=== PATIENT | male | born 1990 | race Caucasian/White ===

== ENCOUNTER 2019-04-12 10:14 | Emergency (ER) | payer BC ==
--- NOTE | 2019-04-12 10:41 | EDPHY ---
H & P Stated Complaint: crohn's disease flair, anxiety, "lost 10 lbs over 4 days" Time Seen by Provider: 04/12/19 10:29 HPI/ROS: CHIEF COMPLAINT: Anxiety, history of Crohn's disease HISTORY OF PRESENT ILLNESS: 28-year-old male history of Crohn's disease diagnosed at age 17, drove to the ER for multiple complaints. He has been working a new restaurant job requiring abnormal hours which has caused GI distress over the past few months. He also notes that because of his change in sleep habits this discussed dietary changes as well as increasing anxiety. This morning he was experiencing acute anxiety. He moved from the [facility] area 2 months ago and has not established local primary care and/or gastroenterology. No history of biologics. No testicle pain. No urinary abnormality. No headache. No fever no chills. PRIMARY CARE PROVIDER: REVIEW OF SYSTEMS: 10 systems reviewed and negative with the exception of the elements mentioned in the history of present illness PAST MEDICAL & SURGICAL HISTORY: Crohn's disease SOCIAL HISTORY: Nonsmoker. . Minimal alcohol use. Works as a contracting manager. PHYSICAL EXAM (Prior to examination, patient consented to physical exam, hands were washed and my usual and customary physical exam procedures followed) 1) GENERAL: Well-developed, well-nourished, alert and oriented. Tearful. Appears anxious 2) HEAD: Normocephalic, atraumatic 3) HEENT: Pupils equal, round, reactive to light bilaterally. Sclera anicteric. Nasopharynx, oropharynx, clear, no lesions. Dry mucous membranes. 4) NECK: Full range of motion, no meningeal signs. 5) LUNGS: Clear auscultation bilaterally, no wheezes, no rhonchi, no retractions. 6) HEART: Regular rate and rhythm, no murmur, no heave, no gallop. 7) ABDOMEN: No guarding, no rebound, no focal tenderness, negative McBurney's, negative Nix's, negative Rovsing's, negative peritoneal sign, I am unable to elicit any abdominal pain on exam 8) MUSCULOSKELETAL: Moving all extremities, no focal areas of tenderness, no obvious trauma. No peripheral edema or discoloration. 9) BACK: No CVA tenderness, no midline vertebral tenderness, no fluctuance, no step-off, no obvious trauma, no visual or palpable abnormality. 10) SKIN: No rash, no petechiae. 11) Psychiatric: Patient is oriented X 3, there is no agitation. DIFFERENTIAL DIAGNOSIS: My differential diagnosis includes, but is not limited to, acute appendicitis, acute cholecystitis, acute Crohn's exacerbation, bowel obstruction, acute pancreatitis,, gastritis and urinary tract infection. The patient understands that this diagnosis is provisional and can never be 100% accurate. This is a partial list of diagnoses considered. These considerations are based on history, physical exam, past history and reassessment. - Personal History Current Tetanus/Diphtheria Vaccine: Yes Current Tetanus Diphtheria and Acellular Pertussis (TDAP): Yes - Medical/Surgical History Hx Asthma: No Hx Chronic Respiratory Disease: No Hx Diabetes: No Hx Cardiac Disease: No Hx Renal Disease: No Hx Cirrhosis: No Hx Alcoholism: No Hx HIV/AIDS: No Hx Splenectomy or Spleen Trauma: No Other PMH: crohn's disease, anxiety - Social History Smoking Status: Never smoked Constitutional: Initial Vital Signs Temperature (C) 36.7 C 04/12/19 10:17 Heart Rate 90 04/12/19 10:17 Respiratory Rate 16 04/12/19 10:17 Blood Pressure 157/96 H 04/12/19 10:17 O2 Sat (%) 97 04/12/19 10:17 O2 Delivery Mode Room Air Allergies/Adverse Reactions: amoxicillin [From Augmentin] Allergy (Verified 04/12/19 10:17) ciprofloxacin [From Cipro] Allergy (Verified 04/12/19 10:17) clavulanic acid [From Augmentin] Allergy (Verified 04/12/19 10:17) Sulfa (Sulfonamide Antibiotics) Allergy (Verified 04/12/19 10:17) Home Medications: Medication Instructions Recorded LORazepam [Ativan 1 mg (RX)] 1 mg PO Q6 PRN #7 tab 04/12/19 Medical Decision Making ED Course/Re-evaluation: Re-evaluation with serial exams most recently at 11:40 a.m.. Patient resting comfortably. Given IV Ativan appears more comfortable, no longer appears anxious. Reviewed his laboratory results with him. No evidence of pre renal azotemia. Doubt acute surgical abdominal pathology in absence of abdominal pain. This time I do not think that imaging studies are indicated. Do not think that emergent GI consultation is indicated. I think the patient can be safely discharged at this time. Recommend establishing primary care, status showing primary gastroenterology. Have given him a small prescription for Ativan as needed for acute anxiety/panic attacks. Patient feels comfortable being discharged. All questions and concerns addressed by myself. Patient given my usual and customary discharge precautions and instructions regarding their clinical impression. Care of patient under supervision of primary Supervising physician Dr Saravia. - Data Points Laboratory Results: Laboratory Results 04/12/19 10:45 04/12/19 10:45 04/12/19 04/12/19 10:45 10:45 WBC 11.60 10^3/uL H 10^3/uL (3.80-9.50) RBC 5.55 10^6/uL 10^6/uL (4.40-6.38) Hgb 16.3 g/dL g/dL (13.7-17.5) Hct 46.0 % % (40.0-51.0) MCV 82.9 fL fL (81.5-99.8) MCH 29.4 pg pg (27.9-34.1) MCHC 35.4 g/dL g/dL (32.4-36.7) RDW 12.3 % % (11.5-15.2) Plt Count 251 10^3/uL 10^3/uL (150-400) MPV 11.0 fL fL (8.7-11.7) Neut % (Auto) 80.4 % H % (39.3-74.2) Lymph % (Auto) 13.4 % L % (15.0-45.0) [place] % (Auto) 4.6 % % (4.5-13.0) Eos % (Auto) 0.9 % % (0.6-7.6) Baso % (Auto) 0.4 % % (0.3-1.7) Nucleat RBC Rel Count 0.0 % % (0.0-0.2) Absolute Neuts (auto) 9.31 10^3/uL H 10^3/uL (1.70-6.50) Absolute Lymphs (auto) 1.56 10^3/uL 10^3/uL (1.00-3.00) Absolute Monos (auto) 0.53 10^3/uL 10^3/uL (0.30-0.80) Absolute Eos (auto) 0.11 10^3/uL 10^3/uL (0.03-0.40) Absolute Basos (auto) 0.05 10^3/uL 10^3/uL (0.02-0.10) Absolute Nucleated RBC 0.00 10^3/uL 10^3/uL (0-0.01) Immature Gran % 0.3 % % (0.0-1.1) Immature Gran # 0.04 10^3/uL 10^3/uL (0.00-0.10) Sodium 140 mEq/L mEq/L (135-145) Potassium 3.9 mEq/L mEq/L (3.5-5.2) Chloride 106 mEq/L mEq/L (97-110) Carbon Dioxide 22 mEq/l mEq/l (22-31) Anion Gap 12 mEq/L mEq/L (6-14) BUN 12 mg/dL mg/dL (7-23) Creatinine 0.8 mg/dL mg/dL (0.7-1.3) Estimated GFR > 60 Glucose 105 mg/dL H mg/dL (70-100) Calcium 9.6 mg/dL mg/dL (8.5-10.4) Total Bilirubin 0.7 mg/dL mg/dL (0.1-1.4) Conjugated Bilirubin 0.1 mg/dL mg/dL (0.0-0.5) Unconjugated Bilirubin 0.6 mg/dL mg/dL (0.0-1.1) AST 30 IU/L IU/L (17-59) ALT 36 IU/L IU/L (21-72) Alkaline Phosphatase 97 IU/L IU/L (38-126) Total Protein 7.6 g/dL g/dL (6.3-8.2) Albumin 4.6 g/dL g/dL (3.5-5.0) Lipase 60 IU/L IU/L (23-300) Medications Given: Discontinued Medications Sodium Chloride (Ns) 1,000 mls @ 0 mls/hr IV ONCE ONE PRN Reason: Wide Open Stop: 04/12/19 10:55 Last Admin: 04/12/19 11:04 Dose: 1,000 mls Lorazepam (Ativan Injection) 1 mg IVP EDNOW ONE Stop: 04/12/19 10:55 Last Admin: 04/12/19 11:04 Dose: 1 mg Departure - Departure Disposition: Home, Routine, Self-Care Clinical Impression: Acute anxiety Crohns disease Qualifiers: Gastrointestinal tract location: unspecified location Digestive disease complication type: unspecified complication Qualified Code(s): K50.919 - Crohn' s disease, unspecified, with unspecified complications Condition: Good Instructions: Crohn Disease (ED), Anxiety (ED) Additional Instructions: Seek immediate medical attention if you develop new or worsening symptoms, if you develop fevers, chills, inability to tolerate oral intake or any other symptoms that concerns you. I recommend you establish primary care and primary gastroenterology. Referrals: Brian Gray MD [Medical Doctor] - 5-7 days, call for appt. (Dr. Brian Gray is a mainframe systems engineer) Eliane Brito MD [Medical Doctor] - 2-3 days, call for appt. Stand Alone Forms: Work Excuse Prescriptions: LORazepam [Ativan 1 mg (RX)] 1 mg PO Q6 PRN #7 tab PRN Reason: Anxiety
[2019-04-12] MEDS ORDERED: LORazepam 2 MG/ML INJ IVP ONE (10:54)
[2019-04-12] MEDS ORDERED: NS 1,000 ML IV ONE (10:54)
[2019-04-12 10:59] LABS: PLATELET COUNT 251 10^3/uL (150-400)
[2019-04-12 12:12] VITALS: BP 107/83
== END 2019-04-12 12:11 | disposition home or self-care (01) ==
DX: F41.9 Anxiety disorder, unspecified (principal); K50.919 Crohn's disease, unspecified, with unspecified complications; E86.9 Volume depletion, unspecified
CPT/HCPCS: 96374; J2060